=== PATIENT | female | born 1995 | race Caucasian/White ===

== ENCOUNTER 2021-09-28 09:23 | Emergency (ER) | payer OTHER ==
[2021-09-28] MEDS ORDERED: Lidocaine 1% PF 5 ML VIAL ONE (11:03)
[2021-09-28] MEDS ORDERED: Triple Antibiotic Oint 1 GM Packet ONE (12:25)
== END 2021-09-28 12:26 | disposition home or self-care (01) ==
LOC: CSHERS 09:23
DX: S61.412A Laceration without foreign body of left hand, initial encounter (principal); W26.8XXA Contact with other sharp object(s), not elsewhere classified, initial encounter
CPT/HCPCS: 12001

== ENCOUNTER 2024-03-23 18:20 | Emergency (ER) | payer OTHER | END 2024-03-23 19:40 | disposition home or self-care (01) | LOC: CSHERS 18:20 | DX: O91.02 Infection of nipple associated with the puerperium (principal); B37.2 Candidiasis of skin and nail | CPT/HCPCS: 99283 ==